=== PATIENT | male | born 1975 | race Two or more races ===

== ENCOUNTER 2019-04-06 05:04 | Inpatient (IN) | payer MEDICARE, MEDICAID ==
[~2019-04-06] VITALS: Ht 175.3 cm; Wt 75.3 kg
[2019-04-06 09:30] VITALS: BP 97/56
--- NOTE | 2019-04-06 09:45 | NUR ---
RAWHIDE TRIMMER NOTES PATIENT ARRIVED AT UNIT VIA GURNEY, ADMITTED FROM [facility]. REPORT RECEIVED FROM SHARON AN. PATIENT AWAKE, A/O X 4. NO ACUTE DISTRESS. DENIES ANY PAIN OR DISCOMFORT. PATIENT REPORTS LEFT HAND NUMBNESS, NOTED WITH LEFT HAND WEAKNESS. PATIENT AMBULATORY WITH STEADY GAIT. PATIENT ADMITTED UNDER MEDICAL SUPERVISION OF KRISTEN ROSS NP, MADE AWARE OF PATIENT ARRIVAL. AWAITING ADMITTING ORDERS. PATIENT ORIENTED TO UNIT, STAFF, PLAN OF CARE AND VERBALIZED UNDERSTANDING. PATIENT CONNECTED TO RAILCAR MECHANIC, NSR 66. SAFETY PRECAUTIONS IN PLACE. WILL CONTINUE TO MONITOR. BED LOCKED AND IN LOW POSITION. BILATERAL UPPER SIDE RAILS UP AND LOCKED. CALL LIGHT WITHIN EASY REACH
[2019-04-06] MEDS ORDERED: LORA0.5T PO (10:01)
[2019-04-06] MEDS ORDERED: ATEN50TA PO (10:01)
[2019-04-06] MEDS ORDERED: FOLI1TAB16 PO (10:01)
[2019-04-06] MEDS ORDERED: VENL150C58 PO (10:01)
[2019-04-06] MEDS ORDERED: ASPI-1152 PO (10:01)
[2019-04-06] MEDS ORDERED: ZOLP10TA6 PO (10:01)
[2019-04-06] MEDS ORDERED: ERGO500040 PO (10:01)
[2019-04-06] MEDS ORDERED: ALPR0.5T8 PO (10:01)
[2019-04-06] MEDS ORDERED: GABA-534 PO (10:01)
--- NOTE | 2019-04-06 11:00 | NUR ---
CURB WORKER NOTES NIHSS ASSESSMENT DONE. WITH EQUAL SENSATION ON BOTH HANDS. NO DRIFT NOTED WITH BILATERAL ARMS DURING ASSESSMENT. PATIENT ONLY NOTED WITH LEFT HAND WEAKNESS WHEN ASKED TO SQUEEZE WITH BOTH HANDS. WILL CONTINUE TO MONITOR
--- NOTE | 2019-04-06 11:50 | NUR ---
POWER CRANE OPERATOR NOTES WITH NEW ORDERS FROM SHE ROSS NP FOR NEURO CONSULT. PLACED CALL TO DR ALVA AND LEFT MESSAGE, SHE ROSS NP PRESENT AT UNIT AND MADE AWARE. WILL CONTINUE TO MONITOR
[2019-04-06 12:00] VITALS: BP 137/79
--- NOTE | 2019-04-06 12:15 | NUR ---
GENERAL EDUCATION INSTRUCTOR NOTES PATIENT SEEN AND EVALUATED BY SPEECH THERAPY. CLEARED TO EAT REGULAR TEXTURED FOOD. WITH NEW DIET ORDER FROM KRISTEN ROSS FITTING SUPERVISOR NOTED AND CARRIED OUT. PATIENT MADE AWARE AND VERBALIZED UNDERSTANDING. WILL CONTINUE TO MONITOR
[2019-04-06] MEDS ORDERED: LORAZEPAM 0.5 MG TABLET PO PRN (12:30)
[2019-04-06] MEDS: THIAMINE HCL 100 MG TABLET PO SCH (12:51)
[2019-04-06] MEDS: ALPRAZOLAM 0.5 MG TABLET PO SCH (12:51)
[2019-04-06] MEDS: MULTIVITAMINS,THERAGRAN 1 UDTAB TABLET PO SCH (12:51)
[2019-04-06] MEDS: FOLIC ACID 1 MG TABLET PO SCH (12:51)
[2019-04-06] MEDS ORDERED: hydrALAZINE HCL IV 20 MG VIAL IV PRN (13:30)
[2019-04-06] MEDS ORDERED: ACETAMINOPHEN 325 MG TABLET PO PRN (13:30)
[2019-04-06] MEDS: NICOTINE PATCH (14MG) 14 MG PATCH.TD24 TD SCH (13:30)
--- NOTE | 2019-04-06 13:42 | NUR ---
MANAGER CHANNEL NOTES PATIENT REFUSED TO HAVE NICOTINE PATCH. RISKS AND BENEFITS EXPLAINED BUT TO NO AVAIL. PATIENT STRONGL REFUSED. WILL CONTINUE TO MONITOR
[2019-04-06 14:03] LABS: HEMATOCRIT 46 % (39-51); HEMOGLOBIN 15.7 g/dL (13.5-17.5); LYMPHOCYTES # (AUTO) 2.2 /CMM (0.8-4.8); MEAN CORPUSCULAR HGB CONC 34 g/dl (31.0-36.0); MEAN CORPUSCULAR VOLUME 91 fL (80-96); MONOCYTES # (AUTO) 0.4 /CMM (0.1-1.30); MONOCYTES % (AUTO) 9.2 % (2.0-12.0); NEUTROPHILS # (AUTO) 1.9 /CMM (1.8-8.9); NEUTROPHILS % (AUTO) 40.8 % (43.0-81.0); PLATELET COUNT (AUTO) 167 /CMM (150-450); RED BLOOD CELL COUNT(AUTO) 5.08 MIL/uL (4.5-6.0); WHITE BLOOD COUNT (AUTO) 4.7 K/uL (4.3-11.0)
[2019-04-06 14:12] LABS: CALCIUM, SERUM 8.2 mg/dL (8.5-10.1); CREATININE 1.1 mg/dL (0.6-1.3); POTASSIUM 3.8 mmol/L (3.5-5.1)
[2019-04-06 14:25] LABS: THYROID STIMULATING HORMONE 1.253 uIU/mL (0.358-3.74)
[2019-04-06 14:26] LABS: ALBUMIN 3.9 g/dL (3.4-5.0); BILIRUBIN,TOTAL 1.1 mg/dL (0.2-1.0); TOTAL PROTEIN, SERUM 7.4 g/dL (6.4-8.2)
[2019-04-06 14:33] LABS: APPEARANCE,URINE CLEAR (CLEAR); BILIRUBIN,URINE NEGATIVE (NEGATIVE); BLOOD, URINE SMALL Ery/uL (NEGATIVE); COLOR,URINE YELLOW (YELLOW); KETONES,URINE NEGATIVE (NEGATIVE); LEUKOCYTE ESTERASE ,URINE NEGATIVE (NEGATIVE); NITRITE, URINE NEGATIVE (NEGATIVE); PH,URINE 5.5 (5.0-8.0); PROTEIN,URINE NEGATIVE (NEGATIVE); UGLUCOSE NEGATIVE (NEGATIVE); UROBILINOGEN,URINE 0.2 EU/dL (0.2)
[2019-04-06 14:40] LABS: BACTERIA,URINE Rare /HPF (None Seen); MUCUS,URINE Few /LPF (None Seen); SQUAMOUS EPITHELIAL CELL,UR Rare /HPF (None Seen); WBC,URINE 0-2 /HPF (0-3)
[2019-04-06 16:00] VITALS: BP 152/102
[2019-04-06] MEDS: GABAPENTIN 300 MG CAPSULE PO SCH (16:22)
[2019-04-06] MEDS: ATENOLOL 50 MG TABLET PO SCH (16:23)
--- NOTE | 2019-04-06 18:27 | NUR ---
DYE MIXER NOTES PLACED CALL TO DR ALVA TO FOLLOW-UP REGARDING NEURO CONSULT, PER DR ALVA, HE WONT BE ABLE TO COME AND SEE PATIENT TODAY AND WILL COME TOMORROW. PATIENT MADE AWARE AND VERBALIZED UNDERSTANDING. VERBALIZED THAT HE WILL STAY TONIGHT AND WILL WAIT FOR NEURO. WILL CONTINUE TO MONITOR
--- NOTE | 2019-04-06 18:46 | NUR ---
WELL LOGGING MUD ANALYSIS CAPTAIN CLOSING NOTE PATIENT RESTING IN BED. A/O X4. ALL DUE MEDS GIVEN ORDERED. SHOWS NO SIGNS OF RESPIRATORY DISTRESS. O2 SATURATION REMAINS >95% ON RA. STILL COMPLAINS OF WEAKNESS IN THE LEFT HAND. IV IS CLEAN AND INTACT SHOWS NO SIGNS OF INFILTRATION. BED IN LOWEST POSITION, SIDE RAILS X2 IN UPRIGHT POSITION. CALL LIGHT WITHIN REACH. WILL ENDORSE TO EVENT AV OPERATOR.
--- NOTE | 2019-04-06 19:10 | NUR ---
CHANGE OF SHIFT REPORT Patient in bed, awake, appears anxious. Tolerating RA, sinus rhythm in the Tele monitor. Denies chest pain. Reports headache. Awaits neuro consult. Maintained safety.
[2019-04-06 20:00] VITALS: BP_SYST 157; BP_SYST 187; BP_DIAS 109; BP_DIAS 97
[2019-04-06 20:33] VITALS: BP 156/97
[2019-04-06] MEDS: ATORVASTATIN 40 MG TABLET PO SCH (21:05)
[2019-04-06] MEDS: ZOLPIDEM TARTRATE 10 MG TABLET PO SCH (21:05)
[2019-04-07] VITALS: BP 143/101
[2019-04-07 04:00] VITALS: BP 131/77
--- NOTE | 2019-04-07 06:27 | NUR ---
END OF SHIFT REPORT Patient in bed, stable oxygen saturation on RA. Sinus Carlos in the Tele monitor. Elevated BP resolved with PRN Hydralazine 20mg IV. NIHSS stroke scale qshift, left hand hospitality workers weak. BUE/BLE no drift. Speech clear, remains A/O x4. Awaits Neuro consult. Hourly rounds, slept well with Ambien. Fall precaution maintained.
[2019-04-07 06:39] LABS: BASOPHILS % (AUTO) 0.5 % (0.0-2.0); EOSINOPHILS % (AUTO) 2.6 % (0.0-6.0); HEMATOCRIT 45 % (39-51); HEMOGLOBIN 15.4 g/dL (13.5-17.5); LYMPHOCYTES # (AUTO) 2.4 /CMM (0.8-4.8); LYMPHOCYTES % (AUTO) 32.2 % (20.0-44.0); MEAN CORPUSCULAR HGB CONC 34 g/dl (31.0-36.0); MEAN CORPUSCULAR VOLUME 90 fL (80-96); MONOCYTES # (AUTO) 0.9 /CMM (0.1-1.30); NEUTROPHILS # (AUTO) 3.9 /CMM (1.8-8.9); NEUTROPHILS % (AUTO) 52.7 % (43.0-81.0); PLATELET COUNT (AUTO) 156 /CMM (150-450); RED BLOOD CELL COUNT(AUTO) 5.02 MIL/uL (4.5-6.0); WHITE BLOOD COUNT (AUTO) 7.4 K/uL (4.3-11.0)
[2019-04-07 06:45] LABS: CALCIUM, SERUM 8.6 mg/dL (8.5-10.1)
--- NOTE | 2019-04-07 07:30 | NUR ---
MANAGER MARKET NOTES PATIENT RECEIVED RESTING INSIDE ROOM. SLEEPING, EASILY AROUSABLE THROUGH VERBAL AND TACTILE STIMULI. NO ACUTE DISTRESS. DENIES ANY PAIN OR DISCOMFORT. PATIENT CALM AND RELAXED. RESEARCH ENGINEER IN PLACE. WILL CONTINUE TO MONITOR. BED LOCKED AND IN LOW POSITION. BILATERAL UPPER SIDE RAILS UP AND LOCKED. CALL LIGHT WITHIN EASY REACH
[2019-04-07 08:00] VITALS: BP 127/83
[2019-04-07] MEDS: NICOTINE PATCH (14MG) 14 MG PATCH.TD24 TD SCH (09:00)
[2019-04-07] MEDS: VENLAFAXINE XR 150 MG CAP.SR.24H PO SCH (09:00)
[2019-04-07] MEDS: GABAPENTIN 300 MG CAPSULE PO SCH ×2 (09:00→16:32)
[2019-04-07] MEDS: ASPIRIN EC 81 MG TABLET.DR PO SCH (09:13)
[2019-04-07] MEDS: FOLIC ACID 1 MG TABLET PO SCH (09:13)
[2019-04-07] MEDS: ATENOLOL 50 MG TABLET PO SCH ×2 (09:14→16:31)
[2019-04-07] MEDS: THIAMINE HCL 100 MG TABLET PO SCH (09:15)
[2019-04-07] MEDS: ALPRAZOLAM 0.5 MG TABLET PO SCH (09:15)
[2019-04-07] MEDS: MULTIVITAMINS,THERAGRAN 1 UDTAB TABLET PO SCH (09:15)
[2019-04-07] MEDS: PANTOPRAZOLE 40 MG TABLET.DR PO SCH (09:24)
--- NOTE | 2019-04-07 09:30 | NUR ---
CRITICAL CARE UNIT NURSE NOTES PATIENT REFUSED EFFEXOR, GABAPETIN, AND NICOTINE PATCH. EXPLAINED THE BENEFITS AND RISKS OF NOT TAKING MEDICATION, BUT PATIENT REFUSEDX3. WILL CONTINUE TO MONITOR.
--- NOTE | 2019-04-07 10:30 | NUR ---
MS RN NOTES PLACED CALL TO DR ALVA NEURO TO FOLLOW-UP REGARDING NEURO CONSULT. NO RESPONSE AT THIS TIME. WILL CONTINUE TO MONITOR
--- NOTE | 2019-04-07 14:36 | NUR ---
MS RN NOTES PLACED CALL TO DR ALVA NEURO TO FOLOW-UP REGARDING CONSULT. PER DR ALVA, HE WONT BE ABLE TO COME TODAY BUT KATHRYN KRAUSE WILL BE COMING TO SEE PATIENT. PATIENT MADE AWARE AND VERBALIZED UNDERSTANDING. WILL CONTINUE TO MONITOR
[2019-04-07 16:00] VITALS: BP 131/81
--- NOTE | 2019-04-07 16:32 | NUR ---
MS RN NOTES PATIENT REFUSED TO TAKE GABAPENTIN. RISKS AND BENEFITS EXPLAINED BUT TO NO AVAIL. OFFERED X 3, PATIENT STRONGLY REFUSED. WILL CONTINUE TO MONITOR
--- NOTE | 2019-04-07 16:45 | NUR ---
MS RN NOTES NELIDA KEEN, NEURO NURSERY HELPER AT BEDSIDE
--- NOTE | 2019-04-07 18:34 | NUR ---
M/S RN CLOSING NOTES PATIENT IN BED, A/O x4. NO CHANGE IN CONDITION THROUGHOUT THE DAY. LEFT HAND REMAINS WEAK.
--- NOTE | 2019-04-07 18:35 | NUR ---
M/S RN CLOSING NOTES WILL ENDORSE TO ONCOMING SHIFT ABOUT JOSÉ MIGUEL. PATIENT REMAINED COMFORTABLE WITH BED KEPT LOW, BREAKS ON, AND CALL LIGHT WITHIN REACH.
--- NOTE | 2019-04-07 19:35 | NUR ---
RN OPENING NOTES RECEIVED REPORT FROM [facility] NURSEGISELA. PATIENT IS CURRENTLY AWAKE, WATCHING TELEVISION. NO SIGNS AND SYMPTOMS OF RESPIRATORY DISTRESS. DENIES SHORTNESS OF BREATH. RESPIRATIONS EVEN AND UNLABORED WITH EQUAL CHEST RISE AND FALL. PATIENT IS A/O X 4, ABLE TO VERBALIZE NEEDS. IV ACCESS INTACT, PATENT NO SIGNS OF INFECTION/INFILTRATION. PATIENT DENIES ANY PAIN AT THIS TIME. SAFETY PRECAUTIONS IMPLEMENTED; CALL LIGHT WITHIN REACH, BED LOWEST POSITION, BED LOCKED, BILATERAL UPPER SIDE RAILS UP AND LOCKED. WILL CONTINUE TO MONITOR PATIENT'S CONDITION AND SAFETY THROUGHOUT THE NIGHT.
[2019-04-07 20:00] VITALS: BP 145/86
[2019-04-07] MEDS: ZOLPIDEM TARTRATE 10 MG TABLET PO SCH (21:07)
[2019-04-07] MEDS: ATORVASTATIN 40 MG TABLET PO SCH (21:07)
--- NOTE | 2019-04-08 06:32 | NUR ---
RN CLOSING NOTES NO SIGNIFICANT CHANGES IN PATIENT'S CONDITION. PATIENT REMAINS A/O X 4. LEFT HAND REMAINS WEAK. PATIENT REMAINS STABLE. NO SIGNS OF RESPIRATORY DISTRESS. NO SHORTNESS OF BREATH NOTED DURING THE SHIFT. ALL NEEDS MET AND ATTENDED TO. PATIENT SLEPT WELL THROUGHOUT THE NIGHT DUE TO AMBIEN. SAFETY PRECAUTIONS IMPLEMENTED; CALL LIGHT WITHIN REACH, BED LOWEST POSITION, BED LOCKED, SIDE RAILS UP X2. WILL ENDORSE TO DAYSHIFT NURSE FOR CONTINUITY OF CARE.
[2019-04-08 07:21] LABS: BASOPHILS % (AUTO) 0.4 % (0.0-2.0); EOSINOPHILS % (AUTO) 2.3 % (0.0-6.0); HEMATOCRIT 46 % (39-51); HEMOGLOBIN 15.8 g/dL (13.5-17.5); LYMPHOCYTES # (AUTO) 1.7 /CMM (0.8-4.8); LYMPHOCYTES % (AUTO) 26.5 % (20.0-44.0); MEAN CORPUSCULAR HGB CONC 34 g/dl (31.0-36.0); MEAN CORPUSCULAR VOLUME 90 fL (80-96); MONOCYTES # (AUTO) 0.8 /CMM (0.1-1.30); MONOCYTES % (AUTO) 12.5 % (2.0-12.0); NEUTROPHILS # (AUTO) 3.8 /CMM (1.8-8.9); NEUTROPHILS % (AUTO) 58.3 % (43.0-81.0); PLATELET COUNT (AUTO) 142 /CMM (150-450); RED BLOOD CELL COUNT(AUTO) 5.14 MIL/uL (4.5-6.0); WHITE BLOOD COUNT (AUTO) 6.5 K/uL (4.3-11.0)
[2019-04-08 07:32] LABS: CALCIUM, SERUM 8.7 mg/dL (8.5-10.1); CREATININE 1.1 mg/dL (0.6-1.3); POTASSIUM 4.6 mmol/L (3.5-5.1)
--- NOTE | 2019-04-08 07:40 | NUR ---
MS RN NOTES PATIENT RECEIVED RESTING INSIDE ROOM. SLEEPING, EASILY AROUSABLE THROUGH VERBAL AND TACTILE STIMULI. BREATHING EVEN AND UNLABORED. NO ACUTE DISTRESS. DENIES ANY PAIN OR DISCOMFORT. PATIENT CALM AND RELAXED. CONTINUE TO NOTE WITH LEFT HAND WEAKNESS. SAFETY PRECAUTIONS IN PLACE. WILL CONTINUE TO MONITOR. BED LOCKED AND IN LOW POSITION. BILATERAL UPPER SIDE RAILS UP AND LOCKED. CALL LIGHT WITHIN EASY REACH
[2019-04-08 07:45] VITALS: BP 124/71
[2019-04-08] MEDS: GABAPENTIN 300 MG CAPSULE PO SCH (09:00)
[2019-04-08] MEDS: VENLAFAXINE XR 150 MG CAP.SR.24H PO SCH (09:00)
[2019-04-08] MEDS: NICOTINE PATCH (14MG) 14 MG PATCH.TD24 TD SCH (09:00)
[2019-04-08] MEDS: THIAMINE HCL 100 MG TABLET PO SCH (09:21)
[2019-04-08] MEDS: ASPIRIN EC 81 MG TABLET.DR PO SCH (09:21)
[2019-04-08] MEDS: ALPRAZOLAM 0.5 MG TABLET PO SCH (09:21)
[2019-04-08] MEDS: PANTOPRAZOLE 40 MG TABLET.DR PO SCH (09:21)
[2019-04-08] MEDS: MULTIVITAMINS,THERAGRAN 1 UDTAB TABLET PO SCH (09:21)
[2019-04-08 09:22] VITALS: BP 124/77
[2019-04-08] MEDS: FOLIC ACID 1 MG TABLET PO SCH (09:22)
[2019-04-08] MEDS: ATENOLOL 50 MG TABLET PO SCH (09:22)
[2019-04-08] MEDS ORDERED: ASPI-605 PO (10:54)
[2019-04-08] MEDS ORDERED: ATOR40TA PO (10:54)
--- NOTE | 2019-04-08 11:53 | NUR ---
MS RN NOTES PATIENT WITH ORDER FOR DISCHARGE HOME BY KRISTEN EGAN NP. ORDERS NOTED AND CARRIED OUT. WRITTEN PRESCRIPTION PROVIDED TO PATIENT. DISCHARGE INSTRUCTIONS AND EDUCATION PROVIDED TO PATIENT AND PATIENT VERBALIZED UNDERSTANDING. IV REMOVED, TIP INTACT, PRESSURE DRESSING PLACED ON SITE. ID BAND REMOVED. ALL BELONGINGS COMPLETE ON DISCHARGE, NO REPORT OF MISSING INVENTORY. PATIENT LEFT UNIT AMBULATORY IN STABLE CONDITION. NO ACUTE DISTRESS. DENIES ANY PAIN OR DISCOMFORT. NO NEW SKIN BREAKDOWN NOTED. HOSPITALIST AWARE OF DISCHARGE.
== END 2019-04-08 11:50 | disposition home or self-care (01) | DRG 74 ==
LOC: TELE 09:12 → MED 04-07 10:27
PROVIDERS: ADMIT Nurse Practitioner Acute Care; ATTEND Nurse Practitioner Acute Care
DX: G58.8 Other specified mononeuropathies (principal); M21.332 Wrist drop, left wrist; R53.1 Weakness; R20.0 Anesthesia of skin; R20.2 Paresthesia of skin; I10 Essential (primary) hypertension; F41.9 Anxiety disorder, unspecified; F32.9 Major depressive disorder, single episode, unspecified; G47.00 Insomnia, unspecified; F17.210 Nicotine dependence, cigarettes, uncomplicated; F10.10 Alcohol abuse, uncomplicated; E78.1 Pure hyperglyceridemia; G56.32 Lesion of radial nerve, left upper limb
CPT/HCPCS: 36415; 80048-TC; 80053-TC; 80061-TC; 80305; 81000-TC; 83880; 84443-TC; 84484-TC; 85025-TC; 85652-TC; 85730-TC; 87081-TC; 92526; 92611-TC; 97110-TC; 97116-TC; 97530-TC; 97535-TC; G0378; J0360